=== PATIENT | male | born 1970 | race Hispanic/Latino ===

== ENCOUNTER 2023-12-01 18:43 | Emergency (ER) | payer OTHER ==
[~2023-12-01] VITALS: Ht 162.6 cm; Wt 93.4 kg
[2023-12-01] MEDS: ketOROlac 60 MG VIAL (30MG/ML) IM ONE (19:15)
[2023-12-01] MEDS: dexaMETHasone SOD PHOSPHATE 4 MG/ML 1ML VIAL IM ONE (19:16)
[2023-12-01] MEDS: cloNIDine HCL 0.1 MG TABLET PO ONE (19:17)
[2023-12-01] MEDS: HYDROcodone/APAP 5/325 1 TAB TABLET PO ONE (19:17)
[2023-12-01] MEDS: CYCLOBENZAPRINE HCL 10 MG TABLET PO ONE (19:17)
[2023-12-01 19:59] VITALS: BP 140/94; PULSE 66; RESP 20; TEMP 97.8; O2SAT 98
== END 2023-12-01 20:37 | disposition home or self-care (01) ==
LOC: EDH 18:43
DX: G89.29 Other chronic pain (principal); M54.42 Lumbago with sciatica, left side; I10 Essential (primary) hypertension
CPT/HCPCS: 99284; 96372 ×2; J1100; J1885